=== PATIENT | male | born 1960 | race Caucasian/White ===

== ENCOUNTER 2016-12-12 05:15 | Day surgery (SDC) | payer OTHER ==
[~2016-12-12 05:15] MED LIST: NO MEDS
== END 2016-12-12 14:29 ==
LOC: SRG 05:15 → SHSB 05:19 → ORE 07:30 → PACU 10:04 → SHSB 10:45
PROC: 09U707Z Supplement Right Tympanic Membrane with Autologous Tissue Substitute, Open Approach (ICD-10-PCS; principal; 2016-12-12)
PROC: 09B0XZZ Excision of Right External Ear, External Approach (ICD-10-PCS; 2016-12-12)
PROC: 097F4ZZ Dilation of Right Eustachian Tube, Percutaneous Endoscopic Approach (ICD-10-PCS; 2016-12-12)
DX: H72.91 Unspecified perforation of tympanic membrane, right ear (principal); H74.21 Discontinuity and dislocation of right ear ossicles; H69.81 Other specified disorders of Eustachian tube, right ear; F17.210 Nicotine dependence, cigarettes, uncomplicated
CPT/HCPCS: C1726; J0171; L8613